=== PATIENT | male | born 1945 | race Caucasian/White ===

== ENCOUNTER 2018-09-05 21:27 | Emergency (ER) | payer MEDICARE, BC, SELFPAY ==
[2018-09-05 21:33] VITALS: BP 136/60; PULSE 79; RESP 18; TEMP 37.2; O2SAT 95
--- NOTE | 2018-09-05 21:48 | W.ED.GENAD ---
Discharge Plan Disposition Patient Disposition: HOME Condition: Improving Discharge Details Chief Complaint: EyeProblem Clinical Impression: Acute bronchitis, Conjunctivitis ED Provider: Sergey Valle Discharge Instructions Instructions: Acute Bronchitis (ED), Conjunctivitis (ED) Medical Decision Making 73-year-old male [place] He has 3 days of worsening cough, congestion, production of yellow sputum. Today he developed bilateral conjunctival injection and crusting of the eyelids. He is afebrile, well-appearing, with normal oxygenation. He likely has acute bronchitis, and either an allergic conjunctivitis or bacterial conjunctivitis. Discussed this with his and the patient. We will start him on erythromycin ophthalmic ointment. Oral antibiotics will be administered. He will return for recheck while in the area if not improving, follow-up with regular physician for recheck HPI General Mode of arrival: ambulatory. Date/Time Provider Initiated Documentation: 09/05/18 21:30. Limitations to Documentation: no limitations. Information obtained by: patient. History of Present Illness 73 year old M presents to the emergency department with the chief complaint of Cough, congestion, conjunctivitis, described as moderate, Quality is described as constant, Patient reports no radiation. Patient started experiencing this hour(s) and it has been constant. No relieving factors improve symptom(s), No exacerbating factors reported . Patient notes cough; denies fever/chills. Patient did receive the following treatments prior to arrival, none Related Data Allergies Allergy/AdvReac Type Severity Reaction Status Date / Time No Known Allergies Allergy Unverified 09/05/18 21:33 General Stated Complaint: EyeProblem TOMER: 4 Review of Systems Review of Systems 6 systems reviewed and otherwise negative FORMERLY [facility], 1928–1983 Medical History Cholecystectomy planned (Acute) Heel spur (Acute) Kidney donor (Acute) Lower back pain (Acute) Lower back pain (Acute) Surgical History H/O transurethral resection of prostate (Acute) S/P TURP (Acute) Social History Smoking/Tobacco Use Status: Never Alcohol Intake: never Substance use type: does not use Do you feel safe at home: Yes Do you feel safe in your relationship?: Yes Exam Narrative Exam Narrative: GEN: awake, alert, oriented 3. Pleasant, well groomed, interactive. HEAD: Normocephalic, atraumatic ENT: Mucous membranes moist, oropharynx unremarkable, External ear exam unremarkable EYES: PERRL, EOMI, bilateral conjunctivae injection, crusting of the eyelids bilaterally. NECK: Full ROM, no CHUY, no menigismus CHEST/RESP: Nontender, clear to auscultation bilateral, no wheeze/rhonchi/rales CARDIOVASCULAR: RRR, no murmur, rub juancarlos. 2+ Rad pulse bilateral ABDOMEN: Soft, nontender, no mass. +Bowel sounds EXT: Full ROM, no edema, no rash Neuro: Grossly normal neurologic exam, conversant, interactive. Psych: Speech fluent, thoughts congruent, affect normal Course Vital Signs Temperature 37.2 C 09/05/18 21:33 Pulse 79 09/05/18 21:33 Respiratory Rate 18 09/05/18 21:33 Blood Pressure 136/60 09/05/18 21:33 Pulse Oximetry 95 09/05/18 21:33 Temperature 37.2 C 09/05/18 21:33 Temperature Source Temporal Artery Scan 09/05/18 21:33 Pulse 79 09/05/18 21:33 Respiratory Rate 18 09/05/18 21:33 Respiratory Effort 09/05/18 21:33 Blood Pressure 136/60 09/05/18 21:33 Pulse Oximetry 95 09/05/18 21:33 Oxygen Delivery Method Room Air 09/05/18 21:33 Oxygen Flow Rate 0 09/05/18 21:33
--- NOTE | 2018-09-05 21:51 | ED.GENADUL_ITS ---
Discharge Plan Disposition Patient Disposition: HOME Condition: Improving Discharge Details Chief Complaint: EyeProblem Clinical Impression: Acute bronchitis, Conjunctivitis ED Provider: Sergey Valle Discharge Instructions Instructions: Acute Bronchitis (ED), Conjunctivitis (ED) Medical Decision Making 73-year-old male [place] He has 3 days of worsening cough, congestion, production of yellow sputum. Today he developed bilateral conjunctival injection and crusting of the eyelids. He is afebrile, well-appearing, with normal oxygenation. He likely has acute bronchitis, and either an allergic conjunctivitis or bacterial conjunctivitis. Discussed this with his and the patient. We will start him on erythromycin ophthalmic ointment. Oral antibiotics will be administered. He will return for recheck while in the area if not improving, follow-up with regular physician for recheck HPI General Mode of arrival: ambulatory . Date/Time Provider Initiated Documentation: 09/05/18 21:30 . Limitations to Documentation: no limitations . Information obtained by: patient . History of Present Illness 73 year old M presents to the emergency department with the chief complaint of Cough, congestion, conjunctivitis, described as moderate, Quality is described as constant, Patient reports no radiation. Patient started experiencing this hour(s) and it has been constant. No relieving factors improve symptom(s), No exacerbating factors reported . Patient notes cough; denies fever/chills. Patient did receive the following treatments prior to arrival, none Related Data Allergies Allergy/AdvReac Type Severity Reaction Status Date / Time No Known Allergies Allergy Unverified 09/05/18 21:33 General Stated Complaint: EyeProblem TOMER: 4 Review of Systems Review of Systems 6 systems reviewed and otherwise negative [facility] Medical History Cholecystectomy planned (Acute) Heel spur (Acute) Kidney donor (Acute) Lower back pain (Acute) Lower back pain (Acute) Surgical History H/O transurethral resection of prostate (Acute) S/P TURP (Acute) Social History Smoking/Tobacco Use Status: Never Alcohol Intake: never Substance use type: does not use Do you feel safe at home: Yes Do you feel safe in your relationship?: Yes Exam Narrative Exam Narrative: GEN: awake, alert, oriented 3. Pleasant, well groomed, interactive. HEAD: Normocephalic, atraumatic ENT: Mucous membranes moist, oropharynx unremarkable, External ear exam unremarkable EYES: PERRL, EOMI, bilateral conjunctivae injection, crusting of the eyelids bilaterally. NECK: Full ROM, no CHUY, no menigismus CHEST/RESP: Nontender, clear to auscultation bilateral, no wheeze/rhonchi/rales CARDIOVASCULAR: RRR, no murmur, rub juancarlos. 2+ Rad pulse bilateral ABDOMEN: Soft, nontender, no mass. +Bowel sounds EXT: Full ROM, no edema, no rash Neuro: Grossly normal neurologic exam, conversant, interactive. Psych: Speech fluent, thoughts congruent, affect normal Course Vital Signs Temperature 37.2 C 09/05/18 21:33 Pulse 79 09/05/18 21:33 Respiratory Rate 18 09/05/18 21:33 Blood Pressure 136/60 09/05/18 21:33 Pulse Oximetry 95 09/05/18 21:33 Temperature 37.2 C 09/05/18 21:33 Temperature Source Temporal Artery Scan 09/05/18 21:33 Pulse 79 09/05/18 21:33 Respiratory Rate 18 09/05/18 21:33 Respiratory Effort 09/05/18 21:33 Blood Pressure 136/60 09/05/18 21:33 Pulse Oximetry 95 09/05/18 21:33 Oxygen Delivery Method Room Air 09/05/18 21:33 Oxygen Flow Rate 0 09/05/18 21:33
[2018-09-05] MEDS: Erythromycin Ophth Oint 3.5 GM TUBE OP (22:01)
[2018-09-05] MEDS: Amoxicillin 875/Clav. 125 TAB PO (22:01)
== END 2018-09-05 22:03 | disposition home or self-care (01) ==
PROVIDERS: Emergency Provider Emergency Medicine
DX: J20.9 Acute bronchitis, unspecified (principal); H10.33 Unspecified acute conjunctivitis, bilateral
CPT/HCPCS: 99283